=== PATIENT | female | born 1985 | race Two or more races ===

== ENCOUNTER 2017-01-30 12:25 | Observation (INO) | payer BC ==
[~2017-01-30] VITALS: Ht 165.1 cm; Wt 77.1 kg
[2017-01-30] MEDS ORDERED: LACTATED RINGER'S 1,000 ML IV ONE (13:25)
[2017-01-30 13:37] LABS: Urine RBC None Seen /hpf (0 - 4)
[2017-01-30 13:46] LABS: Urine Bilirubin Negative (Negative); Urine Blood Negative /uL (Negative); Urine Color Yellow (Yellow); Urine Glucose Normal (Normal); Urine Ketone Negative (Negative); Urine Nitrite Negative (Negative); Urine Squamous Epithelial Cell FEW /hpf (<5); Urine Urobilinogen Normal (Negative); Urine pH 6.5 (5.0-8.0)
[2017-01-30 14:16] LABS: Albumin 2.9 g/dL (3.4-5.0); BUN/Creatinine Ratio 10.3; Bilirubin, Total 0.5 mg/dL (0.2-1.0); Calcium 8.6 mg/dL (8.5-10.1); Potassium 3.9 mmol/L (3.5-5.1); Total Protein 7.4 g/dL (6.4-8.2)
[2017-01-30] MEDS ORDERED: LACTATED RINGER'S 1,000 ML IV SCH (15:25)
== END 2017-01-30 14:08 | disposition home or self-care (01) | DRG 781 ==
LOC: LDRP 12:25
PROVIDERS: ADMIT Specialist; ATTEND Specialist
DX: O21.2 Late vomiting of pregnancy (principal); O26.892 Other specified pregnancy related conditions, second trimester; R51 Headache; R42 Dizziness and giddiness; Z3A.20 20 weeks gestation of pregnancy
CPT/HCPCS: 36415; 59025; 80053; 80307; 81001; 81002; G0378; 96365; 96366

== ENCOUNTER → 2017-04-10 | Outpatient (CLI) | payer BC | END | disposition home or self-care (01) | LOC: LAB 10:31 | PROVIDERS: ATTEND Specialist | DX: Z34.80 Encounter for supervision of other normal pregnancy, unspecified trimester (principal) | CPT/HCPCS: 36415; 83036 ==

== ENCOUNTER 2017-05-10 19:42 | Observation (INO) | payer BC ==
[2017-05-10] MEDS ORDERED: LACTATED RINGER'S 1,000 ML IV ONE (20:32)
[2017-05-10] MEDS ORDERED: TERBUTALINE SULFATE 1 MG/ML 1ML VIAL SC ONE ×2 (20:38→20:45)
[2017-05-10 21:22] LABS: Urine RBC None Seen /hpf (0 - 4)
[2017-05-10 21:42] LABS: Urine Bilirubin Negative (Negative); Urine Blood Negative /uL (Negative); Urine Color Colorless (Yellow); Urine Glucose Normal (Normal); Urine Ketone Negative (Negative); Urine Nitrite Negative (Negative); Urine Squamous Epithelial Cell FEW /hpf (<5); Urine Urobilinogen Normal (Negative)
== END 2017-05-10 21:50 | disposition home or self-care (01) | DRG 781 ==
LOC: LDRP 19:42
PROVIDERS: ADMIT Specialist; ATTEND Specialist
DX: O26.893 Other specified pregnancy related conditions, third trimester (principal); R10.9 Unspecified abdominal pain; Z3A.34 34 weeks gestation of pregnancy
CPT/HCPCS: 59025; 76815; 81001; 81002; G0378; J3105; 96372

== ENCOUNTER 2017-05-11 12:00 | Observation (INO) | payer BC | END 2017-05-11 13:47 | disposition home or self-care (01) | DRG 781 | LOC: LDRP 12:00 | PROVIDERS: ADMIT Obstetrics & Gynecology; ATTEND Obstetrics & Gynecology | DX: O26.893 Other specified pregnancy related conditions, third trimester (principal); R10.9 Unspecified abdominal pain; Z3A.35 35 weeks gestation of pregnancy | CPT/HCPCS: 59025; 81002; G0378 ==

== ENCOUNTER 2017-05-15 11:30 | Observation (INO) | payer BC | END 2017-05-15 12:35 | disposition home or self-care (01) | DRG 778 | LOC: LDRP 11:30 | PROVIDERS: ADMIT Specialist; ATTEND Specialist | DX: O60.03 Preterm labor without delivery, third trimester (principal); Z3A.35 35 weeks gestation of pregnancy | CPT/HCPCS: 59025; 81002; G0378 ==

== ENCOUNTER 2017-05-18 12:10 | Observation (INO) | payer BC ==
[2017-05-18] MEDS ORDERED: PREN-153 OR (13:22)
== END 2017-05-18 13:20 | disposition home or self-care (01) | DRG 781 ==
LOC: LDRP 12:10
PROVIDERS: ADMIT Obstetrics & Gynecology; ATTEND Obstetrics & Gynecology
DX: O26.893 Other specified pregnancy related conditions, third trimester (principal); R10.30 Lower abdominal pain, unspecified; O21.2 Late vomiting of pregnancy; Z3A.36 36 weeks gestation of pregnancy
CPT/HCPCS: 59025; 81002; G0378

== ENCOUNTER 2017-05-25 08:10 | Observation (INO) | payer BC ==
[~2017-05-25 08:10] MED LIST: PREN-153 OR
== END 2017-05-25 09:05 | disposition home or self-care (01) | DRG 778 ==
LOC: LDRP 08:10
PROVIDERS: ADMIT Specialist; ATTEND Specialist
DX: O60.03 Preterm labor without delivery, third trimester (principal); Z3A.37 37 weeks gestation of pregnancy
CPT/HCPCS: 59025; 81002; G0378

== ENCOUNTER 2017-05-30 10:00 | Observation (INO) | payer BC | END 2017-05-30 10:45 | disposition home or self-care (01) | DRG 781 | LOC: LDRP 10:00 | PROVIDERS: ADMIT Obstetrics & Gynecology; ATTEND Obstetrics & Gynecology | DX: O26.893 Other specified pregnancy related conditions, third trimester (principal); R10.9 Unspecified abdominal pain; Z3A.37 37 weeks gestation of pregnancy | CPT/HCPCS: 59025; 81002; G0378 ==

== ENCOUNTER 2017-05-31 13:45 | Observation (INO) | payer BC, MEDICAID | END 2017-05-31 17:10 | disposition home or self-care (01) | DRG 781 | LOC: LDRP 13:45 | PROVIDERS: ADMIT Specialist; ATTEND Specialist | DX: O26.893 Other specified pregnancy related conditions, third trimester (principal); N89.8 Other specified noninflammatory disorders of vagina; R42 Dizziness and giddiness; Z3A.37 37 weeks gestation of pregnancy | CPT/HCPCS: 59025; 81002; G0378 ==

== ENCOUNTER 2017-08-19 12:46 | Emergency (ER) | payer BC, MEDICAID ==
[~2017-08-19] VITALS: Ht 165.1 cm; Wt 72.6 kg
[2017-08-19 14:56] VITALS: BP 112/72
[2017-08-19] MEDS ORDERED: IBUPROFEN 800 MG TAB PO ONE (16:15)
== END 2017-08-19 16:24 | disposition home or self-care (01) ==
LOC: ER 12:46
DX: S16.1XXA Strain of muscle, fascia and tendon at neck level, initial encounter (principal); S29.012A Strain of muscle and tendon of back wall of thorax, initial encounter; W01.0XXA Fall on same level from slipping, tripping and stumbling without subsequent striking against object, initial encounter; Y93.01 Activity, walking, marching and hiking; Y92.89 Other specified places as the place of occurrence of the external cause; Y99.8 Other external cause status
CPT/HCPCS: 72040; 72070